=== PATIENT | male | born 1960 | race Caucasian/White ===

== ENCOUNTER 2024-08-16 12:31 | Observation (INO) | payer MEDICARE, OTHER ==
[2024-08-13 12:30] LABS: BASOPHILS % 0.3 % (0.0-1.0); EOSINOPHILS # (AUTO) 0.2 (0.0-0.4); EOSINOPHILS % 3.1 % (0.0-6.0); HEMATOCRIT 47.1 % (38.2-49.6); HEMOGLOBIN 15.5 g/dL (14.0-18.0); LYMPHOCYTES # (AUTO) 1.9 (1.0-3.2); LYMPHOCYTES % 27.2 % (18.0-39.1); MEAN CORPUSCULAR HEMOGLOBIN 30.9 pg (28-32); MEAN CORPUSCULAR HGB CONC 32.9 g/dL (31-35); MONOCYTES # (AUTO) 0.7 (0.2-0.8); MONOCYTES % 9.8 % (4.4-11.3); NEUTROPHILS # (AUTO) 4.1 (2.1-6.9); NEUTROPHILS % 59.3 % (38.7-80.0); PLATELET COUNT 245 x10e3/uL (140-360); RED BLOOD COUNT 5.01 x10e6/uL (4.3-5.7); RED CELL DISTRIBUTION WIDTH 14.6 % (11.7-14.4); WHITE BLOOD COUNT 6.87 x10e3/uL (4.8-10.8)
[2024-08-13 12:52] LABS: CREATININE, SERUM 0.78 mg/dL (0.72-1.25)
[~2024-08-16] VITALS: Ht 177.8 cm; Wt 100.7 kg
[2024-08-16] MEDS: CELECOXIB 100 MG CAP PO SCH (09:00)
[2024-08-16] MEDS: ASPIRIN 81 MG ENTERIC COATED PO SCH (09:00)
[~2024-08-16 12:31] MED LIST: ATIVAN1 MG PO; BELBUCA300 MCG TOP; DOCUSATE SODIUM 100 MG CAP PO PRN; HYDROCHLOROTHIA25 MG PO; LISINOPRIL20 MG PO; ONDANSETRON HCL INJ 2MG/ML 2ML 2 MG/ML VIAL IV PRN; PHENTERMINE H37.5 MG PO; ROPINIROLE HCL4 M1 PO; ROPINIROLE HCL4 MG PO; ROPIVACAINE/EPI/CLONIDINE/KET 50 ML SYRINGE INJ ONE
[2024-08-16] MEDS ORDERED: HYDROCODON-ACE1 EAC9 PO (13:08)
[2024-08-16] MEDS: LACTATED RINGER'S 1,000 ML ONE (13:48)
[2024-08-16] MEDS ORDERED: LIDOCAINE HCL 2% LOCAL INJ 5 ML SDV VIAL INJ ONE (14:06)
[2024-08-16] MEDS ORDERED: PROPOFOL IV EMULSION 10 MG/ML 20 ML VIAL ONE ×2 (14:07→15:32)
[2024-08-16] MEDS ORDERED: ACETAMINOPHEN 1000 MG/100 ML 100 ML IV ONE (14:07)
[2024-08-16] MEDS ORDERED: SEVOFLURANE INHAL SOLN 250 ML PEN BTL ONE (14:07)
[2024-08-16] MEDS ORDERED: FENTANYL CITRATE/PF 100MCG/2 ML INJ ONE ×3 (14:07→15:32)
[2024-08-16] MEDS: CEFAZOLIN SODIUM 2 GM ONE (14:34)
[2024-08-16] MEDS ORDERED: MIDAZOLAM HCL 2 MG/2 ML VIAL ONE (14:57)
[2024-08-16] MEDS ORDERED: BUPIVACAINE 0.25% 30ML SDV ONE (14:57)
[2024-08-16] MEDS ORDERED: DEXAMETHASONE SOD PHOS INJ 4 MG/ML SDV ONE (15:14)
[2024-08-16] MEDS ORDERED: EPHEDRINE SULFATE INJ 50 MG/ML VIAL ONE (15:17)
[2024-08-16] MEDS ORDERED: PHENYLEPHRINE HCL 1% 10 MG/ML VIAL ONE (15:27)
[2024-08-16] MEDS ORDERED: ESMOLOL HCL 100MG/10ML 10 MG/ML VIAL ONE (15:37)
[2024-08-16] MEDS ORDERED: ONDANSETRON HCL INJ 2MG/ML 2ML 2 MG/ML VIAL ONE (15:46)
[2024-08-16] MEDS: HYDROMORPHONE 1MG/1ML INJ ONE ×2 (17:20→17:34)
[2024-08-16] MEDS: HYDROCODONE/APAP 7.5MG-325MG 1 EA TAB ONE (17:53)
[2024-08-16 19:45] VITALS: BP 132/81; PULSE 74; RESP 16; TEMP 98.4; O2SAT 97
[2024-08-16 20:14] VITALS: PULSE 80; RESP 18; O2SAT 97
[2024-08-16] MEDS: HYDROCODONE/APAP 7.5MG-325MG 1 EA TAB PO PRN (21:20)
[2024-08-16 21:36] VITALS: BP_SYST 131; BP_SYST 132; BP_DIAS 81; BP_DIAS 86; PULSE 80; PULSE 90; RESP 18; TEMP 98.3; TEMP 98.4; O2SAT 100; O2SAT 97
[2024-08-17] VITALS (7 sets, daily range): BP systolic 124–144; BP diastolic 71–82; PULSE 81–104; RESP 18–20; TEMP 98–99.1; O2SAT 96–98
[2024-08-17] MEDS ORDERED: LIDOCAINE 4% PATCH TP PRN (01:45)
[2024-08-17] MEDS ORDERED: DEXTROSE 50% SYRINGE 50 ML IV PRN (01:45)
[2024-08-17] MEDS ORDERED: HYDRALAZINE HCL 20 MG/ML VIAL IV PRN (01:45)
[2024-08-17] MEDS ORDERED: DIPHENHYDRAMINE HCL 25 MG CAP PO PRN (01:45)
[2024-08-17] MEDS ORDERED: BENZONATATE 100 MG CAP PO PRN (01:45)
[2024-08-17] MEDS ORDERED: POTASSIUM CHLORIDE 20 MEQ TAB CR PO PRN (01:45)
[2024-08-17] MEDS ORDERED: MELATONIN 5 MG TABLET PO PRN (01:45)
[2024-08-17] MEDS ORDERED: ONDANSETRON HCL INJ 2MG/ML 2ML 2 MG/ML VIAL IV PRN (01:45)
[2024-08-17] MEDS ORDERED: SIMETHICONE 80 MG CHEW PO PRN (01:45)
[2024-08-17] MEDS ORDERED: DOCUSATE SODIUM 100 MG CAP PO PRN (01:45)
[2024-08-17] MEDS ORDERED: ALBUTEROL/IPRATROPIUM 3 ML NEB NEB PRN (01:45)
[2024-08-17] MEDS: LORAZEPAM 1 MG TAB PO PRN (02:24)
[2024-08-17 05:25] LABS: HEMATOCRIT 43.6 % (38.2-49.6); HEMOGLOBIN 14.7 g/dL (14.0-18.0)
[2024-08-17 05:51] LABS: ANION GAP 16.7 mmol/L (8-16); CALCIUM 8.7 mg/dL (8.4-10.2); CREATININE, SERUM 0.78 mg/dL (0.72-1.25); POTASSIUM 3.7 mmol/L (3.5-5.1)
[2024-08-17] MEDS: ROPINIROLE HCL 2 MG TAB PO SCH (06:21)
[2024-08-17] MEDS: PANTOPRAZOLE SOD 40 MG TABEC PO SCH (08:55)
[2024-08-17] MEDS: LISINOPRIL 20 MG TAB PO SCH (08:55)
[2024-08-17] MEDS ORDERED: LORAZEPAM 1 MG TAB PO SCH (09:00)
[2024-08-17] MEDS ORDERED: ROPINIROLE HCL 2 MG TAB PO SCH (09:00)
[2024-08-17] MEDS: KETOROLAC TROMETHAMINE 30 MG/ML VIAL IV PRN (13:18)
[2024-08-17] MEDS ORDERED: ASPIRIN EC81 MG PO (13:51)
[2024-08-17] MEDS ORDERED: ENOXAPARIN SOD INJ 40 MG/0.4 ML SYR SC SCH (17:00)
== END 2024-08-17 15:35 | disposition home or self-care (01) ==
LOC: OR 12:31 → PACU V 16:31 → MED/SURG 18:27
PROVIDERS: ADMIT Orthopaedic Surgery Adult Reconstructive Orthopaedic Surgery; ATTEND Orthopaedic Surgery Adult Reconstructive Orthopaedic Surgery
DX: M17.12 Unilateral primary osteoarthritis, left knee (principal); I10 Essential (primary) hypertension; G25.81 Restless legs syndrome; G89.4 Chronic pain syndrome; Z01.810 Encounter for preprocedural cardiovascular examination; Z01.812 Encounter for preprocedural laboratory examination; Z01.818 Encounter for other preprocedural examination; F41.9 Anxiety disorder, unspecified; Z88.0 Allergy status to penicillin
CPT/HCPCS: 27447; 36415 ×2; 71046; 73560; 80048 ×2; 85014; 85018; 85025; 86850; 86900; 93005; 94799 ×2; 97110; 97116; 97161; 97530; 99252; C1713 ×2; C1776 ×4; G0378 ×2; J0131; J0690 ×2; J1100; J1171; J1885; J2003; J2250; J2371; J2405; J2470; J2704; J3010; J7121